=== PATIENT | female | born 1975 | race African-American/Black ===

== ENCOUNTER 2017-03-24 20:35 | Emergency (ER) | payer BC ==
[2017-03-24 21:09] LABS: Bilirubin Negative (Negative); Blood, Urine Negative (Negative); Glucose, Urine (Dipstick) Negative (Negative); Ketone, Urine Negative (Negative); Nitrite Negative (Negative); Protein, Urine (Dipstick) Negative (Neg-Trace)
[2017-03-24 21:12] LABS: #Basophils 0.1 thou/uL (0.0-0.2); #Eosinphils 0.1 thou/uL (0.0-0.7); #Lymphocytes 2.1 thou/uL (1.20-3.40); #Monocytes 0.4 thou/uL (0.11-0.59); #Neutrophils 3.6 thou/uL (1.40-6.50); %Basophils 1.6 % (0.0-1.0); %Eosinophils 1.9 % (0.0-10.0); %Lymphocytes 33.9 % (21.0-51.0); %Monocytes 6.3 % (0.0-10.0); Hematocrit 40.5 % (36.0-47.0); Red Blood Cell (RBC) Count 4.23 mill/uL (4.20-5.40); White Blood Cell (WBC) Count 6.3 thou/uL (4.8-10.8)
[2017-03-24 21:34] LABS: ALT (SGPT) 21 U/L (8-55); AST (SGOT) 15 U/L (5-34); Alkaline Phosphatase 33 U/L (40-150); Anion Gap 9 mmol/L (10-20); BUN (Urea Nitrogen) 14 mg/dL (7.0-18.7); Bilirubin, Total 0.4 mg/dL (0.2-1.2); Calc. Creatinine Clearance 0 mL/min (70-130); Carbon Dioxide 30 mmol/L (22-29); Chloride 104 mmol/L (98-107); Estimated GFR-MDRD 68; Globulin 3.5 g/dL (2.4-3.5); Protein, Total 7.3 g/dL (6.0-8.3)
== END 2017-03-24 23:26 | disposition home or self-care (01) ==
LOC: ERS 20:35
DX: K59.00 Constipation, unspecified (principal); F17.210 Nicotine dependence, cigarettes, uncomplicated
CPT/HCPCS: 36415; 80053; 81003; 82274; 83690; 85025; 99284

== ENCOUNTER 2017-07-17 17:55 | Emergency (ER) | payer BC ==
[2017-07-17] MEDS ORDERED: Lidocaine 1% PF 5 ML VIAL ONE (18:18)
[2017-07-17] MEDS ORDERED: Adacel (T-DAP) 0.5 ML VIAL ONE (19:07)
[2017-07-17] MEDS ORDERED: HYDROcodone/Acetaminophen 10/325 mg Tablet ONE (19:07)
== END 2017-07-17 19:33 | disposition home or self-care (01) ==
LOC: ERS 17:55
DX: N76.4 Abscess of vulva (principal); F17.210 Nicotine dependence, cigarettes, uncomplicated
CPT/HCPCS: 56405; 87070; 87077; 87186; 87205; 90471; 90715; 99406; J2001

== ENCOUNTER 2017-09-03 07:07 | Emergency (ER) | payer BC ==
[2017-09-03] MEDS ORDERED: Ibuprofen 800 MG TAB ONE (07:54)
[2017-09-03] MEDS ORDERED: Acetaminophen 500 MG TAB ONE (07:54)
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
== END 2017-09-03 09:28 | disposition home or self-care (01) ==
LOC: ERS 07:07
DX: S86.911A Strain of unspecified muscle(s) and tendon(s) at lower leg level, right leg, initial encounter (principal); M79.1 Myalgia; I10 Essential (primary) hypertension; F17.210 Nicotine dependence, cigarettes, uncomplicated; V49.9XXA Car occupant (driver) (passenger) injured in unspecified traffic accident, initial encounter
CPT/HCPCS: 72170

== ENCOUNTER 2017-10-15 07:08 | Emergency (ER) | payer BC ==
[2017-10-15] MEDS ORDERED: Lidocaine 1% w/Epinephrine 1:100K 20 ML VIAL ONE (08:13)
[2017-10-15] MEDS ORDERED: Lidocaine 4% Cream 5 GM TUBE w/ Tegaderm ONE (08:13)
[2017-10-15] MEDS ORDERED: HYDROcodone/Acetaminophen 7.5/325 mg Tablet ONE (09:44)
== END 2017-10-15 09:57 | disposition home or self-care (01) ==
LOC: ERS 07:08
DX: L02.31 Cutaneous abscess of buttock (principal); L03.317 Cellulitis of buttock; F17.210 Nicotine dependence, cigarettes, uncomplicated
CPT/HCPCS: 10060; J2001

== ENCOUNTER 2017-10-18 08:17 | Emergency (ER) | payer BC | END 2017-10-18 10:28 | disposition home or self-care (01) | LOC: ERS 08:17 | DX: Z48.817 Encounter for surgical aftercare following surgery on the skin and subcutaneous tissue (principal); Z48.01 Encounter for change or removal of surgical wound dressing; F17.210 Nicotine dependence, cigarettes, uncomplicated; Z79.899 Other long term (current) drug therapy | CPT/HCPCS: 99282 ==